=== PATIENT | male | born 1955 | race African-American/Black ===

== ENCOUNTER 2018-03-04 16:09 | Inpatient (IN) | payer MEDICARE, OTHER ==
[2018-03-04] MEDS: IV NORMAL SALINE 1000ML BAG 1,000 ML IV ×3 (16:11→20:28)
[2018-03-04 16:31] LABS: PH COOX 7.43 (7.35-7.45)
[2018-03-04 16:32] LABS: BASE EXCESS COOX 1 mmol/L (-3-3); HCO3 COOX 25 mmol/L (21-28); METHEMOGLOBIN 0.3 % (0.0-1.9); OXYHEMOGLOBIN 69.2 %; PCO2 COOX 38 mmHg (35-46); SAT O2 COOX 82 % (92-99); TOTAL HEMOGLOBIN 16.3 g/dL
[2018-03-04 16:36] LABS: ADD MAN DIFF? NO
[2018-03-04 16:37] LABS: BASO # 0.1 x10^3/uL (0.0-0.2); BASO % 1 % (0-3); EOS % 0 % (0-3); HEMOGLOBIN 16.9 g/dL (13.0-17.5); LYMPH # 0.9 x10^3/uL (1.0-4.8); LYMPH % 13 % (24-48); MEAN CORPUSCULAR HEMOGLOBIN 33 pg (25-35); MEAN CORPUSCULAR HGB CONC 34 g/dL (31-37); MEAN CORPUSCULAR VOLUME 97 fL (79-100); MONO # 0.7 x10^3/uL (0.0-1.1); MONO % 9 % (0-9); NEUT # 5.6 x10^3uL (1.8-7.7); NEUT % 77 % (31-73); PLATELET COUNT 223 x10^3/uL (140-400); RED BLOOD COUNT 5.18 x10^6/uL (4.30-5.70); RED CELL DISTRIBUTION WIDTH 15.3 % (11.5-14.5); WHITE BLOOD COUNT 7.3 x10^3/uL (4.0-11.0)
[2018-03-04 16:39] LABS: BILIRUBIN,URINE MODERATE (NEG); CLARITY,URINE CLEAR; COLOR,URINE YELLOW; GLUCOSE,URINE >=1000 mg/dL (NEG); NITRITE,URINE NEGATIVE (NEG); PROTEIN,URINE 100 mg/dL (NEG-TRACE)
[2018-03-04 16:45] LABS: BARBITURATES NEG (NEG); BENZODIAZEPINES NEG (NEG); CANNABINOIDS NEG (NEG); COCAINE POS (NEG); METHADONE NEG (NEG); OPIATES NEG (NEG); PHENCYCLIDINE NEG (NEG)
[2018-03-04 16:47] LABS: AMPHETAMINE/METHAMPHETAMINE NEG (NEG); BACTERIA,URINE 0 /HPF (0-FEW); ETHANOL, URINE NEG (NEG); INR 2.3 (0.8-1.1); PROTHROMBIN TIME PATIENT 24.2 SEC (11.7-14.0); WBC,URINE OCC /HPF (0-4)
[2018-03-04 16:48] LABS: HYALINE CASTS, URINE MANY /HPF
[2018-03-04 16:51] LABS: ANION GAP 14 (6-14); BLOOD UREA NITROGEN 46 mg/dL (8-26); BUN/CREATININE RATIO 16 (6-20); CALCIUM 9.2 mg/dL (8.5-10.1); CARBON DIOXIDE 28 mmol/L (21-32); CHLORIDE 93 mmol/L (98-107); CREATININE 2.8 mg/dL (0.7-1.3); GFR 22.9; GLUCOSE 427 mg/dL (70-99); POTASSIUM 3.7 mmol/L (3.5-5.1); SODIUM 135 mmol/L (136-145)
[2018-03-04 16:56] LABS: ALBUMIN 3.9 g/dL (3.4-5.0); ALBUMIN/GLOBULIN RATIO 0.9 (1.0-1.7); ALK PHOS 68 U/L (46-116); ALT (SGPT) 20 U/L (16-63); AST (SGOT) 22 U/L (15-37); CREATINE KINASE 282 U/L (39-308); MAGNESIUM 1.6 mg/dL (1.8-2.4); TOTAL BILIRUBIN 0.8 mg/dL (0.2-1.0); TOTAL PROTEIN 8.4 g/dL (6.4-8.2)
[2018-03-04 17:01] LABS: NT-PRO BNP 2845 pg/mL (0-124)
[2018-03-04 17:03] LABS: CARBON MONOXIDE 15.2 % (0.0-1.9); PO2 COOX < 42 mmHg (65-108)
[2018-03-04 17:03] LABS: THYROID STIM HORMONE (TSH) 0.892 uIU/mL (0.358-3.74)
[2018-03-04 17:04] LABS: FIO2 COOX 32
[2018-03-04 17:37] LABS: POC GLUCOSE 375 mg/dL (70-99)
[2018-03-04 18:07] LABS: GASTRIC OB PAT POSITIVE (NEG); NEG OBC GOB NEG; POS OBC GOB POS
[2018-03-04] MEDS ORDERED: DEXTROSE 50% 25 GM / 50ML DISP.SYRIN. IV (20:00)
[2018-03-04] MEDS: oxyCODONE/APAP 10/325 1 TAB TABLET PO (20:41)
[2018-03-04] MEDS: MORPHINE SULFATE 4 MG/ML DISP.SYRIN. IV ×2 (20:42→23:30)
[2018-03-04 21:43] LABS: POC GLUCOSE 379 mg/dL (70-99)
[2018-03-04] MEDS: INSULIN LISPRO 300 UNITS/3 ML INSULN.PEN. SQ (22:15)
[2018-03-05] MEDS: MORPHINE SULFATE 4 MG/ML DISP.SYRIN. IV (04:22)
[2018-03-05 05:20] LABS: ADD MAN DIFF? NO
[2018-03-05 05:36] LABS: BASO % 1 % (0-3); EOS # 0.1 x10^3/uL (0.0-0.7); EOS % 1 % (0-3); HEMATOCRIT 46.3 % (39.0-53.0); HEMOGLOBIN 15.6 g/dL (13.0-17.5); LYMPH # 1.7 x10^3/uL (1.0-4.8); LYMPH % 22 % (24-48); MEAN CORPUSCULAR HEMOGLOBIN 33 pg (25-35); MEAN CORPUSCULAR HGB CONC 34 g/dL (31-37); MEAN CORPUSCULAR VOLUME 97 fL (79-100); MONO # 1.1 x10^3/uL (0.0-1.1); MONO % 15 % (0-9); NEUT # 4.7 x10^3uL (1.8-7.7); NEUT % 62 % (31-73); PLATELET COUNT 188 x10^3/uL (140-400); RED BLOOD COUNT 4.75 x10^6/uL (4.30-5.70); RED CELL DISTRIBUTION WIDTH 15.6 % (11.5-14.5); WHITE BLOOD COUNT 7.6 x10^3/uL (4.0-11.0)
[2018-03-05 05:57] LABS: ANION GAP 5 (6-14); BLOOD UREA NITROGEN 43 mg/dL (8-26); CALCIUM 8.4 mg/dL (8.5-10.1); CARBON DIOXIDE 31 mmol/L (21-32); CHLORIDE 101 mmol/L (98-107); CREATININE 1.8 mg/dL (0.7-1.3); GFR 46.2; GLUCOSE 148 mg/dL (70-99); POTASSIUM 3.5 mmol/L (3.5-5.1); SODIUM 137 mmol/L (136-145)
[2018-03-05] MEDS: INSULIN LISPRO 300 UNITS/3 ML INSULN.PEN. SQ ×3 (07:23→17:24)
[2018-03-05 07:37] LABS: TROPONINI 0.132 ng/mL (0.000-0.055)
[2018-03-05] MEDS ORDERED: INSULIN LISPRO 300 UNITS/3 ML INSULN.PEN. SQ (08:00)
[2018-03-05] MEDS: oxyCODONE/APAP 10/325 1 TAB TABLET PO ×3 (08:15→20:42)
[2018-03-05] MEDS: IV NORMAL SALINE 1000ML BAG 1,000 ML IV ×2 (09:30→22:35)
[2018-03-05 11:51] LABS: POC GLUCOSE 241 mg/dL (70-99)
[2018-03-05 17:12] LABS: MRSA BY PCR Negative (Negative)
[2018-03-05 17:14] LABS: POC GLUCOSE 320 mg/dL (70-99)
[2018-03-05] MEDS ORDERED: hydrALAZINE 20 MG/ML VIAL. IVP (19:45)
[2018-03-05] MEDS ORDERED: ACETAMINOPHEN 500 MG TABLET PO (19:45)
[2018-03-05] MEDS ORDERED: ONDANSETRON PF 4 MG/2 ML VIAL. IV (19:45)
[2018-03-05] MEDS ORDERED: BISACODYL 10 MG SUPP.RECT. PR (19:45)
[2018-03-05] MEDS ORDERED: DEXTROSE 50% 25 GM / 50ML DISP.SYRIN. IV (19:45)
[2018-03-05] MEDS: TEMAZEPAM 7.5 MG CAPSULE PO (20:42)
[2018-03-05] MEDS: BISACODYL 5 MG TABLET.DR. PO (20:42)
[2018-03-05] MEDS: MAGNESIUM HYDROXIDE 2,400 MG/30 ML ORAL.SUSP. PO (20:42)
[2018-03-05] MEDS: ATORVASTATIN CALCIUM 40 MG TABLET. PO (20:42)
[2018-03-05] MEDS: INSULIN GLARGINE 300 UNITS/3 ML INSULN.PEN. SQ (20:55)
[2018-03-05] MEDS ORDERED: METOPROLOL TART IMMED RELEASE 50 MG TABLET. PO (21:00)
[2018-03-05] MEDS ORDERED: NON FORMULARY ITEM (Bumetanide 1 TAB) PO (21:00)
[2018-03-05] MEDS ORDERED: NON FORMULARY ITEM (Potassium Chloride 20 MEQ) PO (21:00)
[2018-03-05 21:22] LABS: POC GLUCOSE 277 mg/dL (70-99)
[2018-03-06 05:06] LABS: HEMATOCRIT 47.5 % (39.0-53.0); HEMOGLOBIN 15.7 g/dL (13.0-17.5); MEAN CORPUSCULAR HGB CONC 33 g/dL (31-37)
[2018-03-06 05:20] LABS: ANION GAP 0 (6-14); BLOOD UREA NITROGEN 31 mg/dL (8-26); CALCIUM 8.7 mg/dL (8.5-10.1); CARBON DIOXIDE 37 mmol/L (21-32); CHLORIDE 103 mmol/L (98-107); CREATININE 1.5 mg/dL (0.7-1.3); GLUCOSE 277 mg/dL (70-99); POTASSIUM 4.5 mmol/L (3.5-5.1); SODIUM 140 mmol/L (136-145)
[2018-03-06] MEDS: oxyCODONE/APAP 10/325 1 TAB TABLET PO (06:29)
[2018-03-06 07:51] LABS: POC GLUCOSE 247 mg/dL (70-99)
[2018-03-06] MEDS: ONDANSETRON ODT 4 MG TAB.RAPDIS. PO (08:09)
[2018-03-06] MEDS: POLYETHYLENE GLYCOL 3350 17 GM PACKET. PO (08:09)
[2018-03-06] MEDS: INSULIN LISPRO 300 UNITS/3 ML INSULN.PEN. SQ ×6 (08:15→17:00)
[2018-03-06] MEDS ORDERED: LOSARTAN POTASSIUM 50 MG TABLET. PO (09:00)
[2018-03-06] MEDS ORDERED: hydroCHLOROthiazide 25 MG TABLET PO (09:00)
[2018-03-06 11:48] LABS: POC GLUCOSE 193 mg/dL (70-99)
[2018-03-06 17:10] LABS: POC GLUCOSE 77 mg/dL (70-99)
[2018-03-06 21:37] LABS: POC GLUCOSE 153 mg/dL (70-99)
[2018-03-06] MEDS: ATORVASTATIN CALCIUM 40 MG TABLET. PO (21:39)
[2018-03-06] MEDS: INSULIN GLARGINE 300 UNITS/3 ML INSULN.PEN. SQ (21:46)
[2018-03-07 07:15] LABS: POC GLUCOSE 429 mg/dL (70-99)
[2018-03-07 07:22] LABS: POC GLUCOSE 134 mg/dL (70-99)
[2018-03-07] MEDS: INSULIN LISPRO 300 UNITS/3 ML INSULN.PEN. SQ ×6 (07:40→17:32)
[2018-03-07] MEDS: POLYETHYLENE GLYCOL 3350 17 GM PACKET. PO (07:43)
[2018-03-07] MEDS: oxyCODONE/APAP 10/325 1 TAB TABLET PO ×2 (07:43→16:43)
[2018-03-07 11:26] LABS: POC GLUCOSE 129 mg/dL (70-99)
[2018-03-07] MEDS: PANTOPRAZOLE 40 MG TABLET.DR. PO (16:42)
[2018-03-07 16:44] LABS: POC GLUCOSE 138 mg/dL (70-99)
[2018-03-07 20:45] LABS: POC GLUCOSE 77 mg/dL (70-99)
[2018-03-07] MEDS: INSULIN GLARGINE 300 UNITS/3 ML INSULN.PEN. SQ ×2 (21:00→22:11)
[2018-03-07] MEDS: ATORVASTATIN CALCIUM 40 MG TABLET. PO (21:27)
[2018-03-08] MEDS: oxyCODONE/APAP 10/325 1 TAB TABLET PO ×3 (05:13→17:35)
[2018-03-08 07:09] LABS: POC GLUCOSE 114 mg/dL (70-99)
[2018-03-08] MEDS: PANTOPRAZOLE 40 MG TABLET.DR. PO (09:16)
[2018-03-08] MEDS: INSULIN LISPRO 300 UNITS/3 ML INSULN.PEN. SQ ×6 (09:16→17:43)
[2018-03-08] MEDS: POLYETHYLENE GLYCOL 3350 17 GM PACKET. PO (09:16)
[2018-03-08 11:24] LABS: POC GLUCOSE 201 mg/dL (70-99)
[2018-03-08 17:06] LABS: POC GLUCOSE 92 mg/dL (70-99)
[2018-03-08 20:47] LABS: POC GLUCOSE 94 mg/dL (70-99)
[2018-03-08] MEDS: ATORVASTATIN CALCIUM 40 MG TABLET. PO (21:13)
[2018-03-08] MEDS: INSULIN GLARGINE 300 UNITS/3 ML INSULN.PEN. SQ (21:47)
[2018-03-09] MEDS: POLYETHYLENE GLYCOL 3350 17 GM PACKET. PO (07:39)
[2018-03-09] MEDS: oxyCODONE/APAP 10/325 1 TAB TABLET PO ×3 (07:39→21:46)
[2018-03-09] MEDS: PANTOPRAZOLE 40 MG TABLET.DR. PO (07:40)
[2018-03-09 07:44] LABS: POC GLUCOSE 95 mg/dL (70-99)
[2018-03-09] MEDS: INSULIN LISPRO 300 UNITS/3 ML INSULN.PEN. SQ ×6 (07:45→17:31)
[2018-03-09] MEDS: METOPROLOL SUCC 24HR ER 25 MG TAB.ER.24H. PO (08:11)
[2018-03-09] MEDS: METOPROLOL SUCC 24HR ER 50 MG TAB.ER.24H. PO (12:19)
[2018-03-09 12:28] LABS: POC GLUCOSE 74 mg/dL (70-99)
[2018-03-09 12:45] LABS: ADD MAN DIFF? NO
[2018-03-09 12:59] LABS: BASO # 0.1 x10^3/uL (0.0-0.2); BASO % 1 % (0-3); EOS # 0.2 x10^3/uL (0.0-0.7); EOS % 2 % (0-3); HEMATOCRIT 47.6 % (39.0-53.0); HEMOGLOBIN 15.9 g/dL (13.0-17.5); LYMPH # 1.3 x10^3/uL (1.0-4.8); LYMPH % 17 % (24-48); MEAN CORPUSCULAR HEMOGLOBIN 33 pg (25-35); MEAN CORPUSCULAR HGB CONC 33 g/dL (31-37); MEAN CORPUSCULAR VOLUME 99 fL (79-100); MONO % 12 % (0-9); NEUT # 5.3 x10^3uL (1.8-7.7); NEUT % 68 % (31-73); PLATELET COUNT 231 x10^3/uL (140-400); RED BLOOD COUNT 4.83 x10^6/uL (4.30-5.70); RED CELL DISTRIBUTION WIDTH 15.4 % (11.5-14.5); WHITE BLOOD COUNT 7.8 x10^3/uL (4.0-11.0)
[2018-03-09] MEDS: POTASSIUM CHLORIDE 20 MEQ TABLET.ER. PO (13:01)
[2018-03-09] MEDS: FUROSEMIDE 100 MG/10 ML VIAL. IVP (13:01)
[2018-03-09 13:11] LABS: ANION GAP 2 (6-14); BLOOD UREA NITROGEN 11 mg/dL (8-26); CALCIUM 8.6 mg/dL (8.5-10.1); CARBON DIOXIDE 37 mmol/L (21-32); CHLORIDE 102 mmol/L (98-107); CREATININE 0.9 mg/dL (0.7-1.3); GFR 102.8; GLUCOSE 60 mg/dL (70-99); POTASSIUM 4.1 mmol/L (3.5-5.1); SODIUM 141 mmol/L (136-145)
[2018-03-09 15:27] LABS: POC GLUCOSE 167 mg/dL (70-99)
[2018-03-09 16:17] LABS: BASE EXCESS COOX 5 mmol/L (-3-3); CARBON MONOXIDE 2.1 % (0.0-1.9); HCO3 COOX 32 mmol/L (21-28); METHEMOGLOBIN 0.3 % (0.0-1.9); OXYHEMOGLOBIN 89.2 %; PCO2 COOX 53 mmHg (35-46); PH COOX 7.39 (7.35-7.45); PO2 COOX 59 mmHg (65-108); SAT O2 COOX 91 % (92-99); TOTAL HEMOGLOBIN 15.2 g/dL
[2018-03-09 16:21] LABS: FIO2 COOX 21
[2018-03-09 17:12] LABS: POC GLUCOSE 169 mg/dL (70-99)
[2018-03-09] MEDS: MORPHINE SULFATE 4 MG/ML DISP.SYRIN. IV (17:26)
[2018-03-09] MEDS: TEMAZEPAM 7.5 MG CAPSULE PO (21:45)
[2018-03-09] MEDS: ATORVASTATIN CALCIUM 40 MG TABLET. PO (21:45)
[2018-03-09 21:46] LABS: POC GLUCOSE 152 mg/dL (70-99)
[2018-03-09] MEDS: INSULIN GLARGINE 300 UNITS/3 ML INSULN.PEN. SQ (21:52)
[2018-03-10] MEDS: oxyCODONE/APAP 10/325 1 TAB TABLET PO ×4 (03:38→21:01)
[2018-03-10] MEDS: INSULIN LISPRO 300 UNITS/3 ML INSULN.PEN. SQ ×6 (08:00→17:00)
[2018-03-10 08:10] LABS: POC GLUCOSE 237 mg/dL (70-99)
[2018-03-10] MEDS ORDERED: LORazepam 1 MG TABLET PO (08:30)
[2018-03-10] MEDS: FUROSEMIDE 100 MG/10 ML VIAL. IVP ×2 (08:34→14:00)
[2018-03-10] MEDS: POLYETHYLENE GLYCOL 3350 17 GM PACKET. PO (08:34)
[2018-03-10] MEDS: PANTOPRAZOLE 40 MG TABLET.DR. PO (08:35)
[2018-03-10] MEDS: POTASSIUM CHLORIDE 20 MEQ TABLET.ER. PO ×3 (08:37→20:58)
[2018-03-10] MEDS: METOPROLOL SUCC 24HR ER 50 MG TAB.ER.24H. PO ×2 (08:52→12:46)
[2018-03-10] MEDS ORDERED: POLYVINYL ALCOHOL 1.4% OPHTH SOLUTION 15ML BOTTLE. OU ×2 (10:30)
[2018-03-10] MEDS: LISINOPRIL 20 MG TABLET PO (12:43)
[2018-03-10 12:56] LABS: POC GLUCOSE 121 mg/dL (70-99)
[2018-03-10 15:03] LABS: POC GLUCOSE 48 mg/dL (70-99)
[2018-03-10 15:29] LABS: POC GLUCOSE 80 mg/dL (70-99)
[2018-03-10 17:00] LABS: POC GLUCOSE 73 mg/dL (70-99)
[2018-03-10] MEDS: LORazepam 1 MG TABLET PO (17:55)
[2018-03-10] MEDS ORDERED: NON FORMULARY ITEM (Albuterol Sulfate (Albuterol Sulfate Conc Neb Soln) 1 VIAL) NEB (18:15)
[2018-03-10] MEDS ORDERED: ONDANSETRON ODT 4 MG TAB.RAPDIS. PO (18:15)
[2018-03-10] MEDS ORDERED: ALBUTEROL SULFATE 2.5 MG/3 ML NEBU. NEB (19:15)
[2018-03-10] MEDS: IPRATRPIUM/ALBUTEROL 0.5/2.5MG 3 ML NEBU. NEB (20:00)
[2018-03-10 20:55] LABS: PROTHROMBIN TIME PATIENT 12.3 SEC (11.7-14.0)
[2018-03-10] MEDS: hydroCHLOROthiazide 12.5 MG CAPSULE PO (20:58)
[2018-03-10 20:59] LABS: POC GLUCOSE 167 mg/dL (70-99)
[2018-03-10] MEDS ORDERED: NON FORMULARY ITEM (Ipratropium/Albuterol Sulfate (Combivent Respimat Inhal) 2 INH) IH (21:00)
[2018-03-10] MEDS ORDERED: ATORVASTATIN CALCIUM 40 MG TABLET. PO (21:00)
[2018-03-10] MEDS: LOSARTAN POTASSIUM 50 MG TABLET. PO (21:00)
[2018-03-10] MEDS ORDERED: NON FORMULARY ITEM (Insulin Detemir (Levemir) 40 UNIT) SQ (21:00)
[2018-03-10] MEDS: ATORVASTATIN CALCIUM 40 MG TABLET. PO (21:00)
[2018-03-10] MEDS: METOPROLOL TART IMMED RELEASE 50 MG TABLET. PO (21:00)
[2018-03-10 21:10] LABS: NT-PRO BNP 729 pg/mL (0-124)
[2018-03-10] MEDS: INSULIN GLARGINE 300 UNITS/3 ML INSULN.PEN. SQ (21:29)
[2018-03-10] MEDS: WARFARIN 10 MG TABLET. PO (21:59)
[2018-03-11 04:14] LABS: ADD MAN DIFF? NO
[2018-03-11 04:22] LABS: BASO # 0.1 x10^3/uL (0.0-0.2); BASO % 1 % (0-3); EOS # 0.2 x10^3/uL (0.0-0.7); EOS % 3 % (0-3); HEMATOCRIT 46.6 % (39.0-53.0); HEMOGLOBIN 15.3 g/dL (13.0-17.5); LYMPH # 1.8 x10^3/uL (1.0-4.8); LYMPH % 26 % (24-48); MEAN CORPUSCULAR HEMOGLOBIN 33 pg (25-35); MEAN CORPUSCULAR HGB CONC 33 g/dL (31-37); MEAN CORPUSCULAR VOLUME 100 fL (79-100); MONO % 14 % (0-9); NEUT % 56 % (31-73); PLATELET COUNT 261 x10^3/uL (140-400); RED BLOOD COUNT 4.67 x10^6/uL (4.30-5.70); RED CELL DISTRIBUTION WIDTH 15.9 % (11.5-14.5); WHITE BLOOD COUNT 7.1 x10^3/uL (4.0-11.0)
[2018-03-11 04:30] LABS: PROTHROMBIN TIME PATIENT 12.2 SEC (11.7-14.0)
[2018-03-11 04:55] LABS: ANION GAP 4 (6-14); BLOOD UREA NITROGEN 18 mg/dL (8-26); CALCIUM 8.7 mg/dL (8.5-10.1); CARBON DIOXIDE 33 mmol/L (21-32); CHLORIDE 100 mmol/L (98-107); CREATININE 1.3 mg/dL (0.7-1.3); GFR 67.2; GLUCOSE 214 mg/dL (70-99); POTASSIUM 4.4 mmol/L (3.5-5.1); SODIUM 137 mmol/L (136-145)
[2018-03-11] MEDS: oxyCODONE/APAP 10/325 1 TAB TABLET PO ×3 (07:13→22:26)
[2018-03-11 07:43] LABS: POC GLUCOSE 172 mg/dL (70-99)
[2018-03-11] MEDS: IPRATRPIUM/ALBUTEROL 0.5/2.5MG 3 ML NEBU. NEB ×3 (08:00→19:24)
[2018-03-11] MEDS: LISINOPRIL 20 MG TABLET PO (09:00)
[2018-03-11] MEDS ORDERED: ASPIRIN ENTERIC COATED 81 MG TABLET.DR. PO (09:00)
[2018-03-11] MEDS: METOPROLOL TART IMMED RELEASE 50 MG TABLET. PO ×2 (09:00→22:13)
[2018-03-11] MEDS: hydroCHLOROthiazide 12.5 MG CAPSULE PO (10:07)
[2018-03-11] MEDS: PANTOPRAZOLE 40 MG TABLET.DR. PO (10:07)
[2018-03-11] MEDS: ASPIRIN ENTERIC COATED 81 MG TABLET.DR. PO (10:07)
[2018-03-11] MEDS: LOSARTAN POTASSIUM 50 MG TABLET. PO (10:08)
[2018-03-11] MEDS: METOPROLOL SUCC 24HR ER 50 MG TAB.ER.24H. PO (10:09)
[2018-03-11] MEDS: POTASSIUM CHLORIDE 20 MEQ TABLET.ER. PO ×3 (10:10→17:24)
[2018-03-11] MEDS: POLYETHYLENE GLYCOL 3350 17 GM PACKET. PO (10:10)
[2018-03-11] MEDS: FUROSEMIDE 100 MG/10 ML VIAL. IVP ×2 (10:12→17:26)
[2018-03-11] MEDS: LORazepam 1 MG TABLET PO ×2 (10:24→22:12)
[2018-03-11] MEDS: INSULIN LISPRO 300 UNITS/3 ML INSULN.PEN. SQ ×6 (10:41→17:00)
[2018-03-11 11:17] LABS: BARBITURATES NEG (NEG); BENZODIAZEPINES NEG (NEG); CANNABINOIDS NEG (NEG); METHADONE NEG (NEG); PHENCYCLIDINE NEG (NEG)
[2018-03-11 11:20] LABS: AMPHETAMINE/METHAMPHETAMINE NEG (NEG); ETHANOL, URINE NEG (NEG)
[2018-03-11 11:27] LABS: COCAINE POS (NEG); OPIATES POS (NEG)
[2018-03-11 11:34] LABS: POC GLUCOSE 273 mg/dL (70-99)
[2018-03-11 12:30] LABS: PROTHROMBIN TIME PATIENT 12.5 SEC (11.7-14.0)
[2018-03-11 16:31] LABS: POC GLUCOSE 70 mg/dL (70-99)
[2018-03-11] MEDS: WARFARIN 10 MG TABLET. PO (17:25)
[2018-03-11 20:10] LABS: POC GLUCOSE 142 mg/dL (70-99)
[2018-03-11] MEDS: ATORVASTATIN CALCIUM 40 MG TABLET. PO (22:13)
[2018-03-11] MEDS: INSULIN GLARGINE 300 UNITS/3 ML INSULN.PEN. SQ (22:21)
[2018-03-12 04:54] LABS: PROTHROMBIN TIME PATIENT 12.8 SEC (11.7-14.0)
[2018-03-12] MEDS: oxyCODONE/APAP 10/325 1 TAB TABLET PO ×3 (04:54→21:15)
[2018-03-12 07:40] LABS: POC GLUCOSE 266 mg/dL (70-99)
[2018-03-12] MEDS: IPRATRPIUM/ALBUTEROL 0.5/2.5MG 3 ML NEBU. NEB ×4 (07:55→20:21)
[2018-03-12] MEDS: POLYETHYLENE GLYCOL 3350 17 GM PACKET. PO (09:38)
[2018-03-12] MEDS: LOSARTAN POTASSIUM 50 MG TABLET. PO (09:39)
[2018-03-12] MEDS: LISINOPRIL 20 MG TABLET PO (09:40)
[2018-03-12] MEDS: hydroCHLOROthiazide 12.5 MG CAPSULE PO (09:40)
[2018-03-12] MEDS: METOPROLOL TART IMMED RELEASE 50 MG TABLET. PO ×2 (09:40→21:16)
[2018-03-12] MEDS: ASPIRIN ENTERIC COATED 81 MG TABLET.DR. PO (09:40)
[2018-03-12] MEDS: PANTOPRAZOLE 40 MG TABLET.DR. PO (09:41)
[2018-03-12] MEDS: POTASSIUM CHLORIDE 20 MEQ TABLET.ER. PO ×3 (09:41→17:04)
[2018-03-12] MEDS: FUROSEMIDE 100 MG/10 ML VIAL. IVP ×2 (09:42→17:04)
[2018-03-12] MEDS: INSULIN LISPRO 300 UNITS/3 ML INSULN.PEN. SQ ×6 (09:58→17:00)
[2018-03-12 12:15] LABS: POC GLUCOSE 226 mg/dL (70-99)
[2018-03-12] MEDS: LORazepam 1 MG TABLET PO (12:35)
[2018-03-12] MEDS: MORPHINE SULFATE 2 MG/ML DISP.SYRIN. IV ×2 (12:36→22:19)
[2018-03-12] MEDS ORDERED: NON FORMULARY ITEM (Warfarin Sodium 1 TAB) PO (16:00)
[2018-03-12] MEDS: WARFARIN 10 MG TABLET. PO (17:04)
[2018-03-12 18:24] LABS: POC GLUCOSE 67 mg/dL (70-99)
[2018-03-12 20:29] LABS: POC GLUCOSE 198 mg/dL (70-99)
[2018-03-12] MEDS: ATORVASTATIN CALCIUM 40 MG TABLET. PO (21:15)
[2018-03-12] MEDS: INSULIN GLARGINE 300 UNITS/3 ML INSULN.PEN. SQ (21:38)
[2018-03-13] MEDS: LORazepam 1 MG TABLET PO ×2 (00:40→13:34)
[2018-03-13 05:31] LABS: ADD MAN DIFF? NO
[2018-03-13 05:36] LABS: BASO % 1 % (0-3); EOS # 0.2 x10^3/uL (0.0-0.7); EOS % 3 % (0-3); HEMATOCRIT 45.6 % (39.0-53.0); HEMOGLOBIN 14.9 g/dL (13.0-17.5); LYMPH # 1.5 x10^3/uL (1.0-4.8); LYMPH % 25 % (24-48); MEAN CORPUSCULAR HEMOGLOBIN 32 pg (25-35); MEAN CORPUSCULAR HGB CONC 33 g/dL (31-37); MEAN CORPUSCULAR VOLUME 99 fL (79-100); MONO # 1.1 x10^3/uL (0.0-1.1); MONO % 18 % (0-9); NEUT # 3.3 x10^3uL (1.8-7.7); NEUT % 53 % (31-73); PLATELET COUNT 280 x10^3/uL (140-400); RED BLOOD COUNT 4.61 x10^6/uL (4.30-5.70); RED CELL DISTRIBUTION WIDTH 15.6 % (11.5-14.5); WHITE BLOOD COUNT 6.1 x10^3/uL (4.0-11.0)
[2018-03-13 05:46] LABS: INR 1.2 (0.8-1.1); PROTHROMBIN TIME PATIENT 15.1 SEC (11.7-14.0)
[2018-03-13 05:51] LABS: ANION GAP 1 (6-14); BLOOD UREA NITROGEN 23 mg/dL (8-26); CARBON DIOXIDE 35 mmol/L (21-32); CHLORIDE 102 mmol/L (98-107); CREATININE 1.4 mg/dL (0.7-1.3); GFR 61.7; GLUCOSE 225 mg/dL (70-99); POTASSIUM 3.8 mmol/L (3.5-5.1); SODIUM 138 mmol/L (136-145)
[2018-03-13] MEDS: IPRATRPIUM/ALBUTEROL 0.5/2.5MG 3 ML NEBU. NEB ×2 (05:53→11:49)
[2018-03-13] MEDS: oxyCODONE/APAP 10/325 1 TAB TABLET PO ×2 (06:45→12:19)
[2018-03-13 08:24] LABS: POC GLUCOSE 193 mg/dL (70-99)
[2018-03-13] MEDS: PANTOPRAZOLE 40 MG TABLET.DR. PO (08:36)
[2018-03-13] MEDS: ASPIRIN ENTERIC COATED 81 MG TABLET.DR. PO (08:36)
[2018-03-13] MEDS: POTASSIUM CHLORIDE 20 MEQ TABLET.ER. PO ×2 (08:36→12:19)
[2018-03-13] MEDS: hydroCHLOROthiazide 12.5 MG CAPSULE PO (08:37)
[2018-03-13] MEDS: METOPROLOL TART IMMED RELEASE 50 MG TABLET. PO (08:37)
[2018-03-13] MEDS: POLYETHYLENE GLYCOL 3350 17 GM PACKET. PO (08:37)
[2018-03-13] MEDS: LOSARTAN POTASSIUM 50 MG TABLET. PO (08:37)
[2018-03-13] MEDS: FUROSEMIDE 100 MG/10 ML VIAL. IVP (08:38)
[2018-03-13] MEDS: INSULIN LISPRO 300 UNITS/3 ML INSULN.PEN. SQ ×4 (08:44→12:00)
[2018-03-13 12:51] LABS: POC GLUCOSE 199 mg/dL (70-99)
[2018-03-13 12:53] LABS: LOW MOLECULAR WEIGHT HEPARIN 1.53 IU/mL
[2018-03-13] MEDS: BUMETANIDE 1 MG TABLET. PO (14:33)
[2018-03-13] MEDS ORDERED: INSULIN GLARGINE 300 UNITS/3 ML INSULN.PEN. SQ (21:00)
== END 2018-03-13 15:05 | disposition home health service (06) | DRG 682 ==
LOC: 6 SOUTH 03-05 12:45 → ER 16:09 → 1 WEST ICU 18:00
PROVIDERS: Internal Medicine
PROC: 5A09357 Assistance with Respiratory Ventilation, Less than 24 Consecutive Hours, Continuous Positive Airway Pressure (ICD-10-PCS; 2018-03-06)
PROC: 4A00X4Z Measurement of Central Nervous Electrical Activity, External Approach (ICD-10-PCS; principal; 2018-03-07)
PROC: 5A09357 Assistance with Respiratory Ventilation, Less than 24 Consecutive Hours, Continuous Positive Airway Pressure (ICD-10-PCS; 2018-03-08)
PROC: 5A09357 Assistance with Respiratory Ventilation, Less than 24 Consecutive Hours, Continuous Positive Airway Pressure (ICD-10-PCS; 2018-03-09)
PROC: 5A09357 Assistance with Respiratory Ventilation, Less than 24 Consecutive Hours, Continuous Positive Airway Pressure (ICD-10-PCS; 2018-03-10)
PROC: 5A09357 Assistance with Respiratory Ventilation, Less than 24 Consecutive Hours, Continuous Positive Airway Pressure (ICD-10-PCS; 2018-03-11)
PROC: 5A09357 Assistance with Respiratory Ventilation, Less than 24 Consecutive Hours, Continuous Positive Airway Pressure (ICD-10-PCS; 2018-03-12)
DX: N17.0 Acute kidney failure with tubular necrosis (principal); G92 Toxic encephalopathy; J96.92 Respiratory failure, unspecified with hypercapnia; T67.0XXA Heatstroke and sunstroke, initial encounter; I48.1 Persistent atrial fibrillation; J98.11 Atelectasis; K92.0 Hematemesis; L03.119 Cellulitis of unspecified part of limb; Z68.41 Body mass index [BMI] 40.0-44.9, adult; K92.2 Gastrointestinal hemorrhage, unspecified; E11.65 Type 2 diabetes mellitus with hyperglycemia; E66.01 Morbid (severe) obesity due to excess calories; E78.5 Hyperlipidemia, unspecified; E86.0 Dehydration; F14.10 Cocaine abuse, uncomplicated; I11.0 Hypertensive heart disease with heart failure; I25.10 Atherosclerotic heart disease of native coronary artery without angina pectoris; I48.2 Chronic atrial fibrillation; I50.9 Heart failure, unspecified; F17.210 Nicotine dependence, cigarettes, uncomplicated; I70.0 Atherosclerosis of aorta; J44.9 Chronic obstructive pulmonary disease, unspecified; M77.30 Calcaneal spur, unspecified foot; V89.2XXA Person injured in unspecified motor-vehicle accident, traffic, initial encounter; Y93.89 Activity, other specified; Y99.8 Other external cause status; Y92.410 Unspecified street and highway as the place of occurrence of the external cause; Z79.01 Long term (current) use of anticoagulants; Z82.49 Family history of ischemic heart disease and other diseases of the circulatory system; Z85.830 Personal history of malignant neoplasm of bone; Z91.19 Patient's noncompliance with other medical treatment and regimen; X30.XXXA Exposure to excessive natural heat, initial encounter; Z90.49 Acquired absence of other specified parts of digestive tract; Z88.5 Allergy status to narcotic agent
CPT/HCPCS: 36415; 70450; 70551; 71045; 71046; 73590; 73610; 73630; 80048; 80053; 80307; 81001; 82271; 82550; 82805; 82962; 83735; 83880; 84443; 84484; 85014; 85018; 85025; 85520; 85610; 87040; 87641; 93005; 93306; 93880; 93970; 94618; 94640; 94660; 95816; 96360; 96361; 97116-GP; 97161-GP; 97165-GO; 97168-GO; 99285; 99285-25; 99406; A4314; J1650; J1815; J2060; J2270; J7030; J7620; Q0162